=== PATIENT | male | born 1950 | race African-American/Black ===

== ENCOUNTER 2017-07-13 21:51 | Emergency (ER) | payer SELFPAY ==
[2017-07-13 22:09] VITALS: TEMP 98.5; BMI 32.5
--- NOTE | 2017-07-13 23:34 | PDOC ---
History of Present Illness - General History Source: Patient Exam Limitations: No Limitations - History of Present Illness Initial Comments: 07/13/17 23:38 The patient is a 66-year-old male, with a significant past medical history of diabetes and lymphoma, who presents to the ED with a nonproductive cough for a week. The patient denies having a fever at home but does report experiencing shortness of breath. He also reports that his blood pressure has been a little elevated recently. The patient denies any fever, chills, nausea, vomiting, diarrhea, or abdominal pain. Denies any chest pain. Denies any recent sick contacts. Allergies: NKA Social History: Former smoker PCP: N/A <Halima Shafer - Last Filed: 07/13/17 23:38> - General History Source: Patient <RajanBashir michael - Last Filed: 07/14/17 02:56> - General Chief Complaint: Shortness of Breath Stated Complaint: SHORTNESS OF BREATH Time Seen by Provider: 07/13/17 23:30 Past History <Halima Shafer - Last Filed: 07/13/17 23:38> - Past Medical History Cancer: Yes (lymphoma) COPD: No Diabetes: Yes - Suicide/Smoking/Psychosocial Hx Smoking Status: Yes Smoking History: Former smoker Have you smoked in the past 12 months: No Number of Cigarettes Smoked Daily: 2 Information on smoking cessation initiated: No Hx Alcohol Use: Yes ("seldom") Drug/Substance Use Hx: No Substance Use Type: None, Marijuana Hx Substance Use Treatment: No <Bashir Lopes - Last Filed: 07/14/17 02:56> - Past Medical History Allergies/Adverse Reactions: Allergies Allergy/AdvReac Type Severity Reaction Status Date / Time No Known Allergies Allergy Verified 07/13/17 22:56 Home Medications: Ambulatory Orders metFORMIN HCL [Glucophage] 1,000 mg PO DAILY 11/18/14 Amox-Tr/K Cl [Augmentin 875Mg Tablet] 1 tab PO BID #20 tablet 07/14/17 Review of Systems - Review of Systems Able to Perform ROS?: Yes Comments:: 07/13/17 23:38 CONSTITUTIONAL: Absent: fever, no chills, no fatigue EYES: Absent: visual changes ENT: Absent: ear pain, no sore throat CARDIOVASCULAR: Absent: chest pain, no palpitations RESPIRATORY: Present: cough, SOB GI: Absent: abdominal pain, no nausea, no vomiting, no constipation, no diarrhea GENITOURINARY: Absent: dysuria, no frequency, no hematuria MUSKULOSKELETAL: Absent: back pain, no arthralgia, no myalgia SKIN: Absent: rash NEURO: Absent: headache <Halima Shafer - Last Filed: 07/13/17 23:38> *Physical Exam - Vital Signs Last Vital Signs Temp Pulse Resp BP Pulse Ox 98.5 F 96 H 28 H 135/90 97 07/13/17 22:07 07/13/17 22:07 07/13/17 22:07 07/13/17 22:07 07/13/17 22:07 - Physical Exam Comments: 07/13/17 23:39 GENERAL: Well-appearing, well-nourished. No apparent distress. HEENT: Normocephalic, atraumatic. PERRL, EOM intact. CARDIOVASCULAR: Normal S1, S2. Regular rate and rhythm. PULMONARY: (+)Scattered rhonchi. ABDOMEN: Soft, non-distended, non-tender. EXTREMITIES: Normal ROM in all four extremities. No gross deformities. SKIN: Warm, dry. No rash NEUROLOGICAL: No focal neurological deficits. <HollisHalima - Last Filed: 07/13/17 23:38> - Vital Signs Last Vital Signs Temp Pulse Resp BP Pulse Ox 98.5 F 96 H 28 H 135/90 97 07/13/17 22:07 07/13/17 22:07 07/13/17 22:07 07/13/17 22:07 07/13/17 22:07 <Bashir Lopes - Last Filed: 07/14/17 02:56> ED Treatment Course - LABORATORY CBC & Chemistry Diagram: 07/14/17 01:30 07/14/17 01:30 <Bashir Lopes - Last Filed: 07/14/17 02:56> Medical Decision Making - Medical Decision Making 07/14/17 02:55 Dr. Lopes: The scribe's documentation has been prepared under my direction and personally reviewed by me in its entirery. I confirm that the note above accurately reflects all work, treatment, procedures, and medical decision making performed by me. <Bashir Lopes - Last Filed: 07/14/17 02:56> *DC/Admit/Observation/Transfer - Attestations Scribe Attestion: 07/13/17 23:40 Documentation prepared by Halima Shafer, acting as medical information officer for Bashir Lopes MD. <Halima Shafer - Last Filed: 07/13/17 23:38> - Discharge Dispostion Admit: No <Bashir Lopes - Last Filed: 07/14/17 02:56> Diagnosis at time of Disposition: Pneumonia Qualifiers: Pneumonia type: due to unspecified organism Laterality: unspecified laterality Lung location: unspecified part of lung Qualified Code(s): J18.9 - Pneumonia, unspecified organism - Discharge Dispostion Disposition: HOME Condition at time of disposition: Stable - Prescriptions Prescriptions: Amox-Tr/K Cl [Augmentin 875Mg Tablet] 1 tab PO BID #20 tablet - Referrals Referrals: Mohinder Herr MD [Staff Physician] - Wayne Espinoza MD, MD [Staff Physician] - - Patient Instructions Printed Discharge Instructions: DI for Pneumonia -- Adult Additional Instructions: Take medication as directed. Drink plenty of fluids. Follow up with your doctor for re-evaluation.
[2017-07-14] MEDS ORDERED: PANTOPRAZOLE 40 MG TABLET (FP) PO ONE (00:39)
[2017-07-14] MEDS ORDERED: AZITHROMYCIN IVPB 500 MG in DEXTROSE 5%-WATER - 250 ML IVPB ONE (00:42)
[2017-07-14] MEDS ORDERED: PANTOPRAZOLE 40 MG TABLET (FP) ONE (00:42)
[2017-07-14] MEDS ORDERED: CEFTRIAXONE 1 GM/50 ML BAG ONE (01:11)
[2017-07-14] MEDS ORDERED: AZITHROMYCIN IVPB 250 ML IVPB ONE (01:11)
[2017-07-14 01:37] LABS: BASO % 1.3 % (0-2.0); EOS % 4.5 % (0-4.5); HEMATOCRIT 40.9 % (35.4-49); HEMOGLOBIN 13.4 GM/dL (11.7-16.9); LYMPH % 31.8 % (8-40); MCH 27.6 pg (25.7-33.7); MCHC 32.7 g/dl (32.0-35.9); MEAN CELL VOLUME 84.3 fl (80-96); MEAN PLT VOLUME 8.6 fl (7.5-11.1); MONO % 14.7 % (3.8-10.2); NEUT % 47.7 % (42.8-82.8); PLATELET COUNT 221 K/MM3 (134-434); RBC 4.85 M/mm3 (4.00-5.60); RDW 19.1 % (11.9-15.9); WHITE BLOOD COUNT 6.1 K/mm3 (4.0-10.0)
[2017-07-14 02:16] LABS: ANION GAP 10 (8-16); BLOOD UREA NITROGEN 34 mg/dL (7-18); CALCIUM 9.2 mg/dL (8.5-10.1); CHLORIDE 107 mmol/L (98-107); CO2 27 mmol/L (21-32); CREATININE 1.3 mg/dL (0.7-1.3); GLUCOSE,RANDOM 116 mg/dL (74-106); POTASSIUM 4.5 mmol/L (3.5-5.1); SODIUM 144 mmol/L (136-145)
[2017-07-14 03:47] VITALS: BP 138/78; PULSE 89
== END 2017-07-14 03:45 | disposition home or self-care (01) ==
LOC: JER 21:51
DX: J18.9 Pneumonia, unspecified organism (principal); E11.9 Type 2 diabetes mellitus without complications; Z79.84 Long term (current) use of oral hypoglycemic drugs; Z87.891 Personal history of nicotine dependence
CPT/HCPCS: 36415; 71046-TC-FY; 80048; 85025; 87040; 99282-25

== ENCOUNTER 2020-08-07 04:44 | Day surgery (SDC) | payer OTHER ==
[2020-08-06 13:43] VITALS: BMI 33.4
[~2020-08-07 04:44] MED LIST: ACETAMINOPHEN 325 MG TABLET (FP) PO PRN; BSS (NA/CA/MG/K) BALANCED SALT SOLUTION OPHTH SOLN 15 ML BOTTLE OD ONE; BUPIVACAINE HCL/PF 0.75% 10 ML VIAL NR ONE; CHONDROITIN SU A/HYALUR SOD 1 KIT IO ONE; LIDOCAINE HCL 1% PRESERVATIVE FREE - 30ML VIAL IO ONE; LIDOCAINE HCL/PF 2% SDV 5ML VIAL INF ONE; PHENYLEPHRINE/KETOROLAC 4 ML VIAL IO ONE; POVIDONE-IODINE 5% OPHTHALMIC PREP 30 ML SOLUTION OD ONE
[2020-08-07] MEDS ORDERED: OFLOXACIN 0.3% OPHTHALMIC SOLUTION 5 ML BOTTLE ONE (07:12)
[2020-08-07] MEDS ORDERED: TROPICAMIDE 1% OPHTH SOLN 15 ML BOTTLE ONE (07:12)
[2020-08-07] MEDS ORDERED: CYCLOPENTOLATE HCL 1% OPHTH SOLN 2 ML BOTTLE ONE (07:13)
[2020-08-07] MEDS ORDERED: KETOROLAC TROMETHAMINE 0.5% EYE DROP 1 DROP DROPS ONE (07:13)
[2020-08-07] MEDS ORDERED: POVIDONE-IODINE 5% OPHTHALMIC PREP 30 ML SOLUTION ONE (07:17)
[2020-08-07] MEDS ORDERED: LIDOCAINE HCL/PF 1% SDV 5ML VIAL ONE (07:17)
[2020-08-07] MEDS ORDERED: BUPIVACAINE HCL/PF 0.75% 10 ML VIAL ONE (07:18)
[2020-08-07] MEDS ORDERED: CHONDROITIN SU A/HYALUR SOD 1 KIT ONE (07:18)
[2020-08-07] MEDS: TROPICAMIDE 1% OPHTH SOLN 15 ML BOTTLE OP SCH ×3 (07:20→07:30)
[2020-08-07] MEDS: PHENYLEPHRINE 2.5% OPHTH SOLN 15 ML BOTTLE OP SCH ×3 (07:20→07:30)
[2020-08-07] MEDS: OFLOXACIN 0.3% OPHTHALMIC SOLUTION 5 ML BOTTLE OP SCH ×3 (07:20→07:30)
[2020-08-07] MEDS: KETOROLAC TROMETHAMINE 0.5% EYE DROP 1 DROP DROPS OP SCH ×3 (07:20→07:30)
[2020-08-07] MEDS: CYCLOPENTOLATE HCL 1% OPHTH SOLN 2 ML BOTTLE OP SCH ×3 (07:20→07:30)
[2020-08-07 07:22] VITALS: TEMP 97.5
[2020-08-07] MEDS ORDERED: LIDOCAINE HCL/PF 2% SDV 5ML VIAL ONE (07:25)
[2020-08-07] MEDS ORDERED: VANCOMYCIN 500 MG VIAL (RESTRICTED TO ID ONLY) ONE (07:25)
[2020-08-07] MEDS ORDERED: PROPOFOL 20 ML ONE ×2 (08:59)
[2020-08-07] MEDS ORDERED: BUPIVACAINE HCL/PF 0.75% 10 ML VIAL NR ONE ×2 (09:08)
[2020-08-07] MEDS ORDERED: LIDOCAINE HCL/PF 2% SDV 5ML VIAL INF ONE ×2 (09:08)
[2020-08-07] MEDS ORDERED: TETRACAINE 0.5% OPHTH SOLN 2 ML BOTTLE TP ONE (09:11)
[2020-08-07] MEDS ORDERED: POVIDONE-IODINE 5% OPHTHALMIC PREP 30 ML SOLUTION OD ONE (09:12)
[2020-08-07] MEDS ORDERED: BSS (NA/CA/MG/K) BALANCED SALT SOLUTION OPHTH SOLN 15 ML BOTTLE OD ONE (09:20)
[2020-08-07] MEDS ORDERED: LIDOCAINE HCL 1% PRESERVATIVE FREE - 30ML VIAL IO ONE (09:21)
[2020-08-07] MEDS ORDERED: TRYPAN BLUE 0.5 ML DISP.SYRIN IO ONE (09:21)
[2020-08-07] MEDS ORDERED: CHONDROITIN SU A/HYALUR SOD 1 KIT IO ONE (09:21)
[2020-08-07] MEDS ORDERED: PHENYLEPHRINE/KETOROLAC 4 ML VIAL IO ONE (09:28)
[2020-08-07 10:25] VITALS: PULSE 68
[2020-08-07] MEDS ORDERED: TETRACAINE 0.5% OPHTH SOLN 2 ML BOTTLE ONE (10:28)
[2020-08-07] MEDS ORDERED: ONDANSETRON 4 MG/2 ML VIAL IVPUSH PRN (10:38)
[2020-08-07] MEDS ORDERED: LACTATED RINGERS SOLUTION 1,000 ML IV SCH (10:45)
[2020-08-07 12:31] VITALS: BP 132/69
== END 2020-08-07 11:30 | disposition home or self-care (01) ==
LOC: JASU-SURG 04:44
PROVIDERS: ATTEND Ophthalmology
PROC: 08RJ3JZ Replacement of Right Lens with Synthetic Substitute, Percutaneous Approach (ICD-10-PCS; principal; 2020-08-07 09:00)
DX: H26.9 Unspecified cataract (principal); H52.201 Unspecified astigmatism, right eye
CPT/HCPCS: 82962; J1097

== ENCOUNTER 2020-08-21 04:37 | Day surgery (SDC) | payer OTHER ==
[2020-08-20 09:55] VITALS: BMI 33.4
[~2020-08-21 04:37] MED LIST changes: -BSS (NA/CA/MG/K) BALANCED SALT SOLUTION OPHTH SOLN 15 ML BOTTLE OD ONE; -BUPIVACAINE HCL/PF 0.75% 10 ML VIAL NR ONE; -CHONDROITIN SU A/HYALUR SOD 1 KIT IO ONE; -LIDOCAINE HCL 1% PRESERVATIVE FREE - 30ML VIAL IO ONE; -LIDOCAINE HCL/PF 2% SDV 5ML VIAL INF ONE; -PHENYLEPHRINE/KETOROLAC 4 ML VIAL IO ONE; -POVIDONE-IODINE 5% OPHTHALMIC PREP 30 ML SOLUTION OD ONE
[2020-08-21] MEDS ORDERED: OFLOXACIN 0.3% OPHTHALMIC SOLUTION 5 ML BOTTLE ONE (06:40)
[2020-08-21] MEDS ORDERED: TROPICAMIDE 1% OPHTH SOLN 15 ML BOTTLE ONE (06:40)
[2020-08-21] MEDS ORDERED: KETOROLAC TROMETHAMINE 0.5% EYE DROP 1 DROP DROPS ONE (06:41)
[2020-08-21] MEDS ORDERED: CYCLOPENTOLATE HCL 1% OPHTH SOLN 2 ML BOTTLE ONE (06:41)
[2020-08-21] MEDS: CYCLOPENTOLATE HCL 1% OPHTH SOLN 2 ML BOTTLE OP SCH ×3 (06:56→07:05)
[2020-08-21] MEDS: OFLOXACIN 0.3% OPHTHALMIC SOLUTION 5 ML BOTTLE OP SCH ×3 (06:56→07:05)
[2020-08-21] MEDS: KETOROLAC TROMETHAMINE 0.5% EYE DROP 1 DROP DROPS OP SCH ×3 (06:56→07:05)
[2020-08-21] MEDS: PHENYLEPHRINE 2.5% OPHTH SOLN 15 ML BOTTLE OP SCH ×3 (06:56→07:05)
[2020-08-21] MEDS: TROPICAMIDE 1% OPHTH SOLN 15 ML BOTTLE OP SCH ×3 (06:56→07:05)
[2020-08-21] MEDS ORDERED: EPINEPHrine/PF 1 MG/1 ML (1:1,000) AMPULE ONE (07:20)
[2020-08-21] MEDS ORDERED: VANCOMYCIN 500 MG VIAL (RESTRICTED TO ID ONLY) ONE (07:20)
[2020-08-21] MEDS ORDERED: BUPIVACAINE HCL/PF 0.75% 10 ML VIAL ONE (07:20)
[2020-08-21] MEDS ORDERED: LIDOCAINE HCL/PF 2% SDV 5ML VIAL ONE ×2 (07:20→08:14)
[2020-08-21] MEDS ORDERED: LIDOCAINE HCL/PF 1% SDV 5ML VIAL ONE (07:21)
[2020-08-21] MEDS ORDERED: BSS (NA/CA/MG/K) BALANCED SALT SOLUTION OPHTH SOLN 15 ML BOTTLE ONE (07:21)
[2020-08-21] MEDS ORDERED: WATER FOR INJ,STERILE 10 ML ONE (07:21)
[2020-08-21] MEDS ORDERED: POVIDONE-IODINE 5% OPHTHALMIC PREP 30 ML SOLUTION ONE (07:22)
[2020-08-21] MEDS ORDERED: TRYPAN BLUE 0.5 ML DISP.SYRIN ONE (07:22)
[2020-08-21] MEDS ORDERED: CHONDROITIN SU A/HYALUR SOD 1 KIT ONE (07:25)
[2020-08-21] MEDS ORDERED: PROPOFOL 20 ML ONE (08:03)
[2020-08-21] MEDS ORDERED: MIDAZOLAM HCL 2 MG/2 ML SINGLE DOSE VIAL ONE (08:03)
[2020-08-21] MEDS ORDERED: TETRACAINE 0.5% OPHTH SOLN 2 ML BOTTLE ONE (08:04)
[2020-08-21] MEDS ORDERED: TETRACAINE 0.5% OPHTH SOLN 2 ML BOTTLE OS ONE (08:15)
[2020-08-21] MEDS ORDERED: LIDOCAINE HCL/PF 2% SDV 5ML VIAL PNB ONE ×4 (08:21→08:25)
[2020-08-21] MEDS ORDERED: BUPIVACAINE HCL/PF 0.75% 10 ML VIAL PNB ONE ×2 (08:22→08:25)
[2020-08-21] MEDS ORDERED: TRYPAN BLUE 0.5 ML DISP.SYRIN IO ONE (08:23)
[2020-08-21] MEDS ORDERED: CHONDROITIN SU A/HYALUR SOD 1 KIT IO ONE (08:24)
[2020-08-21] MEDS ORDERED: EPINEPHrine/PF 1 MG/1 ML (1:1,000) AMPULE IM ONE (08:30)
[2020-08-21] MEDS ORDERED: LIDOCAINE HCL 1% PRESERVATIVE FREE - 30ML VIAL IO ONE (08:34)
[2020-08-21] MEDS ORDERED: ONDANSETRON 4 MG/2 ML VIAL IVPUSH PRN (09:34)
[2020-08-21 09:43] VITALS: PULSE 79; TEMP 97.3
[2020-08-21] MEDS ORDERED: LACTATED RINGERS SOLUTION 1,000 ML IV SCH (09:45)
[2020-08-21 10:32] VITALS: BP 167/90
== END 2020-08-21 10:20 | disposition home or self-care (01) ==
LOC: JASU-SURG 04:37
PROVIDERS: ATTEND Ophthalmology
PROC: 08RK3JZ Replacement of Left Lens with Synthetic Substitute, Percutaneous Approach (ICD-10-PCS; principal; 2020-08-21 08:00)
DX: H26.9 Unspecified cataract (principal); H52.202 Unspecified astigmatism, left eye; I10 Essential (primary) hypertension; E11.9 Type 2 diabetes mellitus without complications
CPT/HCPCS: 82962

== ENCOUNTER 2021-06-19 04:28 | Day surgery (SDC) | payer OTHER ==
[2021-06-16 12:28] VITALS: BMI 34.7
[2021-06-19 09:14] VITALS: TEMP 97.5
[2021-06-19 09:58] VITALS: BP 130/79; PULSE 71
== END 2021-06-19 10:09 | disposition home or self-care (01) ==
LOC: JASU-ENDO 04:28
PROVIDERS: ATTEND Internal Medicine Gastroenterology
PROC: 0DJD8ZZ Inspection of Lower Intestinal Tract, Via Natural or Artificial Opening Endoscopic (ICD-10-PCS; principal; 2021-06-19 08:45)
DX: Z12.11 Encounter for screening for malignant neoplasm of colon (principal); K64.8 Other hemorrhoids; Z80.0 Family history of malignant neoplasm of digestive organs; I10 Essential (primary) hypertension; E11.9 Type 2 diabetes mellitus without complications
CPT/HCPCS: 82962

== ENCOUNTER 2022-10-26 10:38 | Emergency (ER) | payer OTHER ==
[2022-10-26 10:50] VITALS: BP 142/73; PULSE 87; RESP 18; TEMP 97.9; BMI 30.4
[2022-10-26 12:31] LABS: HEMATOCRIT 39.5 % (35.4-49); HEMOGLOBIN 12.8 GM/dL (11.7-16.9); MCH 27.8 pg (25.7-33.7); MCHC 32.5 g/dl (32.0-35.9); MEAN CELL VOLUME 85.4 fl (80-96); MEAN PLT VOLUME 10.3 fl (7.5-11.1); PLATELET COUNT 189 10^3/uL (134-434); RBC 4.63 M/mm3 (4.00-5.60); RDW 15.2 % (11.9-15.9)
[2022-10-26 12:38] LABS: WHITE BLOOD COUNT 6.3 K/mm3 (4.0-10.0)
[2022-10-26 12:43] LABS: ALBUMIN 2.8 g/dl (3.4-5.0); BLOOD UREA NITROGEN 36.5 mg/dL (7-18); CALCIUM 9.8 mg/dL (8.5-10.1)
[2022-10-26 12:48] LABS: BILIRUBIN,TOTAL 0.5 mg/dL (0.2-1); TOT PROT 6.7 g/dl (6.4-8.2)
[2022-10-26 13:32] LABS: ANISOCYTOSIS 1+; MACROCYTOSIS 0
== END 2022-10-26 14:30 | disposition home or self-care (01) ==
LOC: JER 10:38
DX: R05.9 Cough, unspecified (principal); N17.9 Acute kidney failure, unspecified; J18.9 Pneumonia, unspecified organism; Z20.822 Contact with and (suspected) exposure to COVID-19
CPT/HCPCS: 0241U-QW; 36415; 71046-TC-FY; 80053; 85025; 93005; 93010; 99285-25